=== PATIENT | male | born 1995 | race African-American/Black ===

== ENCOUNTER 2022-11-21 17:12 | Inpatient (IN) | payer OTHER ==
[~2022-11-21] VITALS: Ht 170.2 cm; Wt 81.6 kg
[2022-11-21] MEDS ORDERED: ASPIRIN 81MG TABLET PO ONE (17:45)
[2022-11-21] MEDS ORDERED: SODIUM CHLORIDE 0.9% 1,000 ML IV ONE (18:00)
[2022-11-21 18:01] LABS: BASOPHILS % 0.6 % (0.0-2.0); EOSINOPHILS % 0.7 % (0.0-5.0); HEMATOCRIT. 46.1 % (42.0-52.0); HEMOGLOBIN. 15.6 g/dL (14.0-18.0); LYMPHOCYTES % 23.6 % (20.0-50.0); MEAN CORPUSCULAR HEMOGLOBIN 30.5 pg (28.0-32.0); MONOCYTES % 6.2 % (2.0-8.0); NEUTROPHILS % 68.9 % (40.0-76.0); PLATELET 118 x1000/uL (130-400); RED BLOOD CELL COUNT 5.12 mill/uL (4.7-6.1); RED CELL DISTRIBUTION WIDTH 13.4 % (11.6-14.6)
[2022-11-21 18:09] LABS: CHLORIDE 99 mEq/L (98-107)
[2022-11-21 19:04] LABS: D-DIMER < 0.19 mg/L FEU (<0.50); PARTIAL THROMBOPLASTIN TIME 27.8 sec (23.4-31.0); PROTHROMBIN TIME 10.9 sec (9.6-11.0)
[2022-11-21] MEDS ORDERED: METOPROLOL TARTRATE 100MG TABLET PO ONE (20:45)
[2022-11-21 22:38] LABS: *AMPHETAMINES SCREEN URINE NEGATIVE (NEGATIVE); *BARBITURATES SCREEN URINE NEGATIVE (NEGATIVE); *BENZODIAZEPINES SCREEN URINE NEGATIVE (NEGATIVE); *COCAINE SCREEN URINE NEGATIVE (NEGATIVE); CANNABINOID URINE SCREEN NEGATIVE (NEGATIVE); METHADONE URINE SCREEN NEGATIVE (NEGATIVE); OPIATES URINE SCREEN NEGATIVE (NEGATIVE); PHENCYCLIDINE URINE SCREEN NEGATIVE (NEGATIVE)
[2022-11-22] MEDS ORDERED: ACETAMINOPHEN 325MG TABLET PO PRN ×2 (02:45→03:45)
[2022-11-22] MEDS ORDERED: ACETAMINOPHEN 650MG/20.3ML UDC GT PRN (02:45)
[2022-11-22] MEDS ORDERED: GUAIFENESIN 200MG/10ML SUGAR FREE UDC PO PRN (02:45)
[2022-11-22] MEDS ORDERED: LORAZEPAM 0.5MG TABLET PO PRN (02:45)
[2022-11-22] MEDS ORDERED: DOCUSATE SODIUM 100MG CAPSULE PO PRN (02:45)
[2022-11-22] MEDS ORDERED: IPRATROPIUM/ALBUTEROL 0.5-3(2.5)MG/3ML NEB HHN PRN (02:45)
[2022-11-22] MEDS ORDERED: MVI, ADULT NO.1 10 ML, FOLIC ACID 1 MG, THIAMINE HCL 100 MG in SODIUM CHLORIDE 0.9% 1,0... IV NR ×4 (02:45)
[2022-11-22 04:27] LABS: PHOSPHORUS 3.3 mg/dL (2.5-4.9)
[2022-11-22] MEDS ORDERED: DEXTROSE 50% WATER 50ML SYRINGE IV PRN (05:45)
[2022-11-22] MEDS ORDERED: BLOOD SUGAR DIAGNOSTIC STRIP TEST SCH (06:30)
[2022-11-22] MEDS ORDERED: INSULIN LISPRO 100 UNITS/ML SUBCUT SCH (07:00)
[2022-11-22] MEDS: LOSARTAN POTASSIUM 50 MG TABLET PO SCH (09:07)
[2022-11-22] MEDS: ASPIRIN 81MG EC TABLET PO SCH (09:07)
[2022-11-22] MEDS: METOPROLOL TARTRATE 100MG TABLET PO SCH (09:07)
[2022-11-22] MEDS: ENOXAPARIN 40MG/0.4ML SYR SUBCUT SCH (09:08)
[2022-11-22 10:00] VITALS: BP 153/107
[2022-11-22 12:00] VITALS: BP 148/102
[2022-11-22] MEDS: FLUOXETINE HCL 10 MG CAPSULE PO SCH (12:18)
[2022-11-22 16:00] VITALS: BP 145/95
[2022-11-22 20:00] VITALS: BP 187/102
[2022-11-22] MEDS: FAMOTIDINE 20MG TABLET PO SCH (20:34)
[2022-11-22] MEDS ORDERED: ATORVASTATIN CALCIUM 10MG TABLET PO SCH (21:00)
[2022-11-22] MEDS ORDERED: HYDRALAZINE HCL 10MG TABLET PO PRN (23:00)
[2022-11-23] VITALS (10 sets, daily range): BP systolic 135–158; BP diastolic 91–109
[2022-11-23] MEDS: HYDRALAZINE HCL 10MG TABLET PO PRN ×2 (02:19→12:46)
[2022-11-23 07:09] LABS: HEMATOCRIT 43.5 % (42.0-52.0); HEMOGLOBIN 15.1 g/dL (14.0-18.0); MEAN CORPUSCULAR HEMOGLOBIN 30.9 pg (28.0-32.0); MEAN CORPUSCULAR VOLUME 89.1 fL (80.0-94.0); PLATELET 134 x1000/uL (130-400); RED BLOOD CELL COUNT 4.88 mill/uL (4.7-6.1); RED CELL DISTRIBUTION WIDTH 13.6 % (11.6-14.6)
[2022-11-23 07:37] LABS: CHLORIDE 104 mEq/L (98-107)
[2022-11-23 07:46] LABS: HDL CHOLESTEROL 54 mg/dL (40-59); LDL CHOLESTEROL 146 mg/dL (5-100); PHOSPHORUS 4.3 mg/dL (2.5-4.9)
[2022-11-23] MEDS: ASPIRIN 81MG EC TABLET PO SCH (08:13)
[2022-11-23] MEDS: LOSARTAN POTASSIUM 50 MG TABLET PO SCH (08:13)
[2022-11-23] MEDS: ONDANSETRON HCL 4MG/2ML INJ IV PRN ×2 (08:14→21:20)
[2022-11-23] MEDS: FLUOXETINE HCL 10 MG CAPSULE PO SCH (08:14)
[2022-11-23] MEDS: ENOXAPARIN 40MG/0.4ML SYR SUBCUT SCH (08:14)
[2022-11-23] MEDS: METOPROLOL TARTRATE 100MG TABLET PO SCH (08:14)
[2022-11-23] MEDS: AMLODIPINE 10MG TABLET PO SCH (15:00)
[2022-11-23] MEDS ORDERED: THIAMINE HCL 100 MG in SODIUM CHLORIDE 0.9% 49 ML IV NR (15:00)
[2022-11-23] MEDS ORDERED: ATORVASTATIN CALCIUM 10MG TABLET PO SCH (21:00)
[2022-11-23] MEDS: FAMOTIDINE 20MG TABLET PO SCH (21:12)
[2022-11-24] VITALS: BP 150/87
[2022-11-24] MEDS: HYDRALAZINE HCL 10MG TABLET PO PRN (00:44)
[2022-11-24 04:00] VITALS: BP 147/96
[2022-11-24 07:14] LABS: HEMATOCRIT 45.3 % (42.0-52.0); HEMOGLOBIN 15.7 g/dL (14.0-18.0); MEAN CORPUSCULAR HEMOGLOBIN 30.8 pg (28.0-32.0); MEAN CORPUSCULAR VOLUME 89.2 fL (80.0-94.0); PLATELET 145 x1000/uL (130-400); RED BLOOD CELL COUNT 5.08 mill/uL (4.7-6.1); RED CELL DISTRIBUTION WIDTH 13.9 % (11.6-14.6)
[2022-11-24 07:39] LABS: CHLORIDE 104 mEq/L (98-107)
[2022-11-24 08:00] VITALS: BP 169/100
[2022-11-24] MEDS: AMLODIPINE 10MG TABLET PO SCH (08:54)
[2022-11-24] MEDS: ASPIRIN 81MG EC TABLET PO SCH (08:54)
[2022-11-24] MEDS: FLUOXETINE HCL 10 MG CAPSULE PO SCH (08:54)
[2022-11-24] MEDS: ENOXAPARIN 40MG/0.4ML SYR SUBCUT SCH (08:56)
[2022-11-24] MEDS ORDERED: METOPROLOL SUCCINATE 50MG ER TABLET PO SCH (09:00)
[2022-11-24] MEDS ORDERED: FLUOX10 PO (09:36)
[2022-11-24] MEDS ORDERED: ATOR10TA PO (09:36)
[2022-11-24] MEDS ORDERED: METO-385 PO (09:36)
[2022-11-24] MEDS ORDERED: AMLO10TA80 PO (09:36)
[2022-11-24 10:28] VITALS: BP 129/84
[2022-11-24 12:00] VITALS: BP 129/84
[2022-11-24] MEDS ORDERED: DILTIAZEM HCL 60MG TABLET PO SCH (12:30)
== END 2022-11-24 14:00 | disposition home or self-care (01) | DRG 309 ==
LOC: ER 17:12 → MICUSO 21:55 → EDBEDREQ 22:00 → EDBEDREQTM 22:00 → 8WST 11-22 09:37
PROVIDERS: ADMIT Internal Medicine; ATTEND Internal Medicine
DX: R00.2 Palpitations (principal); E87.1 Hypo-osmolality and hyponatremia; I16.0 Hypertensive urgency; Z20.822 Contact with and (suspected) exposure to COVID-19; F10.10 Alcohol abuse, uncomplicated; F43.21 Adjustment disorder with depressed mood; F41.9 Anxiety disorder, unspecified; E78.5 Hyperlipidemia, unspecified; E78.00 Pure hypercholesterolemia, unspecified; Y90.9 Presence of alcohol in blood, level not specified; F41.0 Panic disorder [episodic paroxysmal anxiety]; Z79.899 Other long term (current) drug therapy; Z82.49 Family history of ischemic heart disease and other diseases of the circulatory system
CPT/HCPCS: 36415; 71045; 80048; 80053; 80061; 80305; 80320; 83036; 83735; 83880; 84100; 84443; 84484; 85025; 85027; 85379; 87426; 93005; 93306; 93970; 99285; J1650; J2405; J3411; J3490; J7030; G0480